=== PATIENT | male | born 1960 | race Two or more races ===

== ENCOUNTER 2020-08-20 22:28 | Emergency (ER) | payer MEDICAID ==
[~2020-08-20] VITALS: Ht 172.7 cm; Wt 95.3 kg
[2020-08-20] MEDS ORDERED: LIDOCAINE 2% JEL UROJET 10 ML MM ONE ×2 (22:45→23:00)
[2020-08-20 22:51] LABS: BASOPHILS % (AUTO) 0.7 % (0.0-2.0); HEMATOCRIT 44 % (39-51); HEMOGLOBIN 14.7 g/dL (13.5-17.5); LYMPHOCYTES # (AUTO) 3.2 /CMM (0.8-4.8); LYMPHOCYTES % (AUTO) 56.1 % (20.0-44.0); MEAN CORPUSCULAR HGB CONC 34 g/dl (31.0-36.0); MEAN CORPUSCULAR VOLUME 95 fL (80-96); MONOCYTES # (AUTO) 0.4 /CMM (0.1-1.30); MONOCYTES % (AUTO) 6.9 % (2.0-12.0); NEUTROPHILS % (AUTO) 34.3 % (43.0-81.0); PLATELET COUNT (AUTO) 285 /CMM (150-450); RED BLOOD CELL COUNT(AUTO) 4.59 MIL/uL (4.5-6.0); WHITE BLOOD COUNT (AUTO) 5.8 K/uL (4.3-11.0)
[2020-08-20] MEDS ORDERED: IV NS 0.9% 1,000 ML BAG IV ONE (23:00)
[2020-08-20 23:08] LABS: BILIRUBIN,URINE Negative (NEGATIVE); COLOR,URINE YELLOW (YELLOW); LEUKOCYTE ESTERASE ,URINE Negative (NEGATIVE); NITRITE, URINE Negative (NEGATIVE); PH,URINE 5.5 (5.0-8.0); PROTEIN,URINE 30 mg/dl (NEGATIVE); UGLUCOSE Negative (NEGATIVE); UROBILINOGEN,URINE 0.2 EU/dL (0.2)
[2020-08-20 23:17] LABS: BACTERIA,URINE Rare /HPF (None Seen); RBC,URINE NONE SEEN /HPF (0-2); SQUAMOUS EPITHELIAL CELL,UR Few /HPF (None Seen); WBC,URINE NONE SEEN /HPF (0-3)
--- NOTE | 2020-08-20 23:19 | NUR ---
MONICA FROM [facility] CALLED IN BY A BYSTANDER. TO ER BED 12. PT'S EYE ARE CLOSE ARROUSABLE WITH TACTILE STIMULI. NOT IN RESP DISTRESS, BREATHING EVEN AND UNLABORED. BROUGHT D/T BEING FOUND ON THE SIDEWALK LYING. UNABLE TO GET ANY INFORMATION FROM THE PT. PT SMELLS OF ALCOHOL. WAS AT THE BEDSIDE FOR EVAL. ORDERS RECEIVED, NOTED AND CARRIED OUT. IV LINE ESTABLSIHED ON R AC 18G, BLOOD DRAWN AND GIVEN TO PHLEB AT BEDSIDE. URINE COLLECTED VIA ON AND OUT CATH W/ STRICT STERILE TECHNIQUE OBSERVED DURING PROCEDURE. PT IS ON MONITOR.
[2020-08-20 23:44] LABS: CALCIUM, SERUM 7.8 mg/dL (8.5-10.1); CARBON DIOXIDE 26 mmol/L (21-32); CHLORIDE 106 mmol/L (98-107); CREATININE 0.7 mg/dL (0.6-1.3); GLUCOSE 108 mg/dL (74-106); POTASSIUM 3.6 mmol/L (3.5-5.1); SODIUM SERUM 144 mmol/L (136-145); UREA NITROGEN, BLOOD 13 mg/dL (7-18)
[2020-08-20 23:52] LABS: ALANINE AMINOTRANSFERASE 62 U/L (12-78); ALBUMIN 4.1 g/dL (3.4-5.0); ALCOHOL, BLOOD 432 mg/dL (0-0); ALKALINE PHOSPHATASE 75 U/L (46-116); ASPARTATE AMINOTRANSFERASE 39 U/L (15-37); BILIRUBIN,TOTAL 0.2 mg/dL (0.2-1.0); TOTAL PROTEIN, SERUM 7.7 g/dL (6.4-8.2)
[2020-08-20 23:53] LABS: ACETAMINOPHEN < 2 ug/ml (10-30)
--- NOTE | 2020-08-21 01:34 | NUR ---
PT COMFORTABLY SLEEPING ON BED NO SIGN OF RESPIRATORY DISTRESS
--- NOTE | 2020-08-21 03:36 | NUR ---
PT COMFORTABLY SLEEPING ON BED NO SIGN OF RESPIRATORY DISTRESS, VSS CHECKED AND RECORDED
[2020-08-21] MEDS ORDERED: CHLO25CA22 PO (05:43)
--- NOTE | 2020-08-21 05:47 | NUR ---
PT IS AWAKE NOW SEEN BY MD, PT IS ABLE TO WALK WITHOUT ASSISTANCE
--- NOTE | 2020-08-21 05:50 | NUR ---
GIVE A CALL TO PT COURTNEY [phone] BUT NO ANSWER LEFT MESSAGE TO [employer] WILL TRY AGAIN LATER
--- NOTE | 2020-08-21 05:58 | NUR ---
RECEIVED CALL FROM PT COURTNEY AND INFORM HER THAT PT IS READY TO BE DISCHARGE
--- NOTE | 2020-08-21 06:45 | NUR ---
AWAITING FOR TO PORTRAIT PHOTOGRAPHER PT.
[2020-08-21 07:29] VITALS: BP 121/73
--- NOTE | 2020-08-21 07:29 | NUR ---
IV removed. Catheter intact and site benign. Pressure and 4x4 applied to site. No bleeding noted.
--- NOTE | 2020-08-21 07:29 | NUR ---
Patient discharged to home in stable condition. Written and verbal after care instructions given. Patient verbalizes understanding of instruction. Picked up by . Ambulatory with steady gait.
== END 2020-08-21 07:29 | disposition home or self-care (01) ==
LOC: ER 22:30 → EDBD 22:30 → ER 08-21 07:29
DX: F10.229 Alcohol dependence with intoxication, unspecified (principal); R41.82 Altered mental status, unspecified; R94.31 Abnormal electrocardiogram [ECG] [EKG]; Y90.8 Blood alcohol level of 240 mg/100 ml or more
CPT/HCPCS: 36415; 70450; 71045; 72125; 80048; 80076; 80299; 80307; 80320; 81001; 82962; 85025; 93005; 96360; 99285; J3490; J7030 ×2; G0480